=== PATIENT | female | born 1955 | race Caucasian/White ===

== ENCOUNTER 2020-09-30 19:57 | Inpatient (IN) | payer MEDICARE, OTHER ==
[~2020-09-30] VITALS: Ht 172.7 cm; Wt 85.1 kg
[2020-09-30] MEDS ORDERED: DEXAMETHASONE SOD PHOS 10 MG/ML VIAL. IV ONE (21:15)
--- NOTE | 2020-09-30 21:33 | PHYS DOC ---
Past History Past Medical History: Hypothyroid, Pneumonia Additional Past Medical Histor: anal cancel, diverticulitis (RICARDO MESA APRN) Past Surgical History: Other Additional Past Surgical Histo: colostomy (RICARDO MESA APRN) Alcohol Use: None (RICARDO MESA APRN) General Adult EDM: Chief Complaint: SHORTNESS OF BREATH HPI: HPI: Patient is a 65-year-old female presents with nonproductive cough and shortness of breath . Patient states that her cough started a week ago and has gradually worsened. Patient reports shortness of breath started yesterday. Patient states "when I had pneumonia before this is exactly how I felt". Patient denies fevers. Patient is a 1 pack-a-day smoker of COPD, colorectal cancer. (RICARDO MESA APRN) Review of Systems: Review of Systems: Constitutional: Denies fever or chills Eyes: Denies change in visual acuity HENT: Denies nasal congestion or sore throat Respiratory: Reports nonproductive cough and shortness of breath Cardiovascular: Denies chest pain or edema GI: Denies abdominal pain, nausea, vomiting, bloody stools or diarrhea : Denies dysuria Musculoskeletal: Denies back pain or joint pain Integument: Denies rash Neurologic: Denies headache, focal weakness or sensory changes Endocrine: Denies polyuria or polydipsia Lymphatic: Denies swollen glands Psychiatric: Denies depression or anxiety (RICARDO MESA APRN) Current Medications: Current Meds: Current Medications Medications (Trade) Dose Ordered Sig/Damaso Start Time Stop Time Status Last Admin Dose Admin Dexamethasone Sodium Phosphate (Decadron) 10 mg 1X ONCE 09/30/20 21:15 09/30/20 21:17 DC (RICARDO MESA APRN) Allergies: Allergies: Allergies Coded Allergies Type Severity Reaction Last Updated Verified Penicillins Allergy Intermediate 09/30/20 Yes (RICARDO MESA APRN) Physical Exam: PE: Constitutional: Well developed, well nourished, no acute distress, non-toxic appearance. [] HENT: Normocephalic, atraumatic, bilateral external ears normal, oropharynx moist, no oral exudates, nose normal. [] Eyes: PERRLA, EOMI, conjunctiva normal, no discharge. [] Neck: Normal range of motion, no tenderness, supple, no stridor. [] Cardiovascular:Heart rate regular rhythm, no murmur [] Lungs & Thorax: Bilateral expiratory wheezes Abdomen: Bowel sounds normal, soft, no tenderness, no masses, no pulsatile masses. [] Skin: Warm, dry, no erythema, no rash. [] Back: No tenderness, no CVA tenderness. [] Extremities: No tenderness, no cyanosis, no clubbing, ROM intact, no edema. [] Neurologic: Alert and oriented X 3, normal motor function, normal sensory function, no focal deficits noted. [] (RICARDO MESA APRN) Current Patient Data: Vital Signs: Vital Signs Date Time Temp Pulse Resp B/P (MAP) Pulse Ox O2 Delivery O2 Flow Rate FiO2 09/30/20 21:01 98.1 89 20 223/119 (153) 93 Room Air (RICARDO MESA APRN) EKG: EKG: Sinus rhythm. 79 bpm. [] (RICARDO MESA APRN) Radiology/Procedures: Radiology/Procedures: [] EXAMINATION: XR CHEST 1V CLINICAL HISTORY: Shortness of breath EXAM DATE/TIME: 09/30/2020 9:19 PM COMPARISON: None FINDINGS: Lines, Tubes, and Devices: None. Cardiomediastinal Silhouette: Normal heart size. Aortic atherosclerotic calcification. Lungs and Pleura: Questionable mild patchy bibasilar airspace disease, likely atelectasis. No evidence of pleural effusion. Pulmonary vasculature unremarkable. Bones and Soft Tissues: No acute osseous abnormality. IMPRESSION: Questionable mild patchy bibasilar airspace disease, likely atelectasis, otherwise no evidence of acute cardiopulmonary abnormality. Electronically signed by: Jimi Hays DO (09/30/2020 9:39 PM) [facility] (RICARDO MESA APRN) Heart Score: C/O Chest Pain: No Risk Factors: Risk Factors: DM, Current or recent (<one month) smoker, HTN, HLP, family history of CAD, obesity. Risk Scores: Score 0 - 3: 2.5% MACE over next 6 weeks - Discharge Home Score 4 - 6: 20.3% MACE over next 6 weeks - Admit for Clinical Observation Score 7 - 10: 72.7% MACE over next 6 weeks - Early Invasive Strategies (RICARDO MESA APRN) Course & Med Decision Making: Course & Med Decision Making Pertinent Labs and Imaging studies reviewed. (See chart for details) [] 65-year-old female presents with nonproductive cough and shortness of breath for 1 week. Patient has expiratory wheezes. 10 of dexamethasone and DuoNeb given. Troponin is 0.078. No ST elevation on EKG. CTA ordered. Chest x-ray showed possible right-sided pneumonia. doxycycline ordered to treat pneumonia. 324 of aspirin given. Transfer patient care to Dr. Krishnan (RICARDO MESA APRN) Course & Med Decision Making Patient is a 65-year-old female whose care was transferred to pa at [facility] pending CT and labs. Vital signs notable for hypertension and tachycardia. EKG sinus rhythm and no STEMI but elevated troponin. D-dimer normal. CT a with no pulmonary embolism and a couple small lung nodules. Other laboratory analysis not concerning. Findings suggestive of pneumonia and patient was started on antibiotics and given steroids. Discussed findings with both and the planting machine operator at [place] who felt patient would benefit from admission to [place] for continued evaluation and treatment of her elevated troponin and pneumonia. Patient grateful, verbalized understanding and agreed with plan of admission. (GRAHAM KRISHNAN MD) Dragon Disclaimer: Dragon Disclaimer: This electronic medical record was generated, in whole or in part, using a voice recognition dictation system. (RICARDO MESA APRN) Departure Departure: Impression: Primary Impression: CAP (community acquired pneumonia) Qualified Codes: J18.9 - Pneumonia, unspecified organism Additional Impression: COPD (chronic obstructive pulmonary disease) Qualified Codes: J44.1 - Chronic obstructive pulmonary disease with (acute) exacerbation Disposition: ADMITTED INPATIENT Admitting Physician: Shahab Peres (RICARDO MEAS APRN) Condition: STABLE Referrals: BRIE HANSON MD (PCP) RICARDO MESA APRN September 30, 2020 21:33 GRAHAM KRISHNAN MD September 30, 2020 23:45
[2020-09-30 21:42] LABS: BASO % 0 % (0-3); EOS # 0.3 x10^3/uL (0.0-0.7); EOS % 4 % (0-3); HEMOGLOBIN 13.8 g/dL (12.0-15.5); LYMPH # 1.9 x10^3/uL (1.0-4.8); LYMPH % 24 % (24-48); MEAN CORPUSCULAR HEMOGLOBIN 28 pg (25-35); MEAN CORPUSCULAR HGB CONC 33 g/dL (31-37); MEAN CORPUSCULAR VOLUME 86 fL (79-100); MONO # 0.6 x10^3/uL (0.0-1.1); MONO % 7 % (0-9); NEUT # 5.2 x10^3uL (1.8-7.7); NEUT % 65 % (31-73); PLATELET COUNT 267 x10^3/uL (140-400); RED CELL DISTRIBUTION WIDTH 16.4 % (11.5-14.5)
--- NOTE | 2020-09-30 21:42 | RAD ---
EXAMINATION: XR CHEST 1V CLINICAL HISTORY: Shortness of breath EXAM DATE/TIME: 09/30/2020 9:19 PM COMPARISON: None FINDINGS: Lines, Tubes, and Devices: None. Cardiomediastinal Silhouette: Normal heart size. Aortic atherosclerotic calcification. Lungs and Pleura: Questionable mild patchy bibasilar airspace disease, likely atelectasis. No evidenc e of pleural effusion. Pulmonary vasculature unremarkable. Bones and Soft Tissues: No acute osseous abnormality. IMPRESSION: Questionable mild patchy bibasilar airspace disease, likely atelectasis, otherwise no evidence of acu te cardiopulmonary abnormality. Electronically signed by: Jimi Hays DO (09/30/2020 9:39 PM) KAYY
[2020-09-30] MEDS ORDERED: IPRATRPIUM/ALBUTEROL 0.5/2.5MG 3 ML NEBU. NEB ONE (21:45)
[2020-09-30 21:48] LABS: CALCIUM 8.6 mg/dL (8.5-10.1); CREATININE 1.2 mg/dL (0.6-1.0); GFR 45.1; POTASSIUM 4.4 mmol/L (3.5-5.1)
[2020-09-30 21:54] LABS: ALBUMIN 3.8 g/dL (3.4-5.0); TOTAL BILIRUBIN 0.3 mg/dL (0.2-1.0); TOTAL PROTEIN 7.5 g/dL (6.4-8.2)
[2020-09-30] MEDS ORDERED: DOXY-96 PO (21:54)
[2020-09-30] MEDS ORDERED: DOXYCYCLINE HYCLATE 100 MG TABLET PO ONE (22:00)
[2020-09-30] MEDS ORDERED: ASPIRIN CHEWABLE 81 MG TABLET. PO ONE (22:15)
[2020-09-30] MEDS ORDERED: DOXYCYCLINE HYCLATE 100 MG in IV DEXTROSE 5% 100 ML IV ONE (22:15)
[2020-09-30] MEDS ORDERED: IOHEXOL 350 MG/ML 100 ML VIAL. IV ONE (22:30)
[2020-09-30] MEDS ORDERED: IV DEXTROSE 5% 100 ML IV ONE (22:42)
[2020-09-30] MEDS ORDERED: DOXYCYCLINE HYCLATE 100 MG VIAL IV ONE (22:42)
--- NOTE | 2020-09-30 23:21 | RAD ---
INDICATION: Reason: SOB, OMNI 350, 75ml / Spl. Instructions: / History: COMPARISON: None. TECHNIQUE: Axial CT images obtained through the chest. Intravenous contrast utilized. Angiogram 3D images proce ssed per protocol. One or more of the following individualized dose reduction techniques were utilized for this examinat ion: 1. Automated exposure control; 2. Adjustment of the mA and/or kV according to patient size; 3 . Use of iterative reconstruction technique. FINDINGS: Sub-4 mm left upper lung nodule. Sub-4 mm right upper lung nodule. No focal airspace consolidation. Partially visualized liver is low density. Can be seen with fatty infiltration. Gallstones. Low-density left adrenal nodule could be from adenoma. Coronary artery calcific atherosclerosis. Small amount contrast is seen within the thoracic aorta which limits evaluation but no aneurysm is se en. Degenerative changes of spine. Mild wedging of the vertebral body. No central pulmonary embolus IMPRESSION: No central pulmonary embolus. There are couple of small lung nodules. Gallstones. Fleischner Society recommendations for solitary solid lung nodule follow up.: In a low risk patient: <6mm - No follow up required. 6-8mm - 6-[address], then CT at 18-24 months. >8mm - CT at 3 months, PET/CT or tissue sampling. In a high risk patient (history of smoking or other known risk factors): <6mm - Follow up CT at 12 months. 6-8mm - 6-[address], then CT at 18-24 months. >8mm - CT at 3 months, PET/CT or tissue sampling. Fleischner Society recommendations for multiple solid lung nodule follow up.: In a low risk patient: <6mm - No follow up required. 6-8mm - 3-[address], then CT at 18-24 months. >8mm - CT at 3-6 months, then at 18-24 months. PET/CT or tissue sampling based on most suspicious no dule. In a high risk patient (history of smoking or other known risk factors): <6mm - Follow up CT at 12 months. 6-8mm - 3-[address], then CT at 18-24 months. >8mm - CT at 3-6 months, PET/CT or tissue sampling option based on most suspicious nodule. Electronically signed by: Hero Steiner MD (09/30/2020 11:19 PM) [id number]
[2020-10-01] VITALS (20 sets, daily range): BP systolic 134–224; BP diastolic 54–98
[2020-10-01 00:08] LABS: BILIRUBIN,URINE NEG (NEG); CLARITY,URINE CLEAR; COLOR,URINE STRAW; GLUCOSE,URINE NEG (NEG)
[2020-10-01 00:09] LABS: NITRITE,URINE NEG (NEG); UROBILINOGEN,URINE 0.2 mg/dL (0.2 mg/dL)
[2020-10-01 00:10] LABS: BACTERIA,URINE 0 /HPF (0-FEW); RBC,URINE 0 /HPF (0-2); SQUAMOUS EPITHELIAL CELL,UR FEW /LPF; WBC,URINE 0 /HPF (0-4)
[2020-10-01] MEDS ORDERED: LABETALOL 20 MG/4 ML DISP.SYRIN. IVP ONE (01:00)
--- NOTE | 2020-10-01 02:19 | EKG ---
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
[2020-10-01] MEDS: LABETALOL 20 MG/4 ML DISP.SYRIN. IVP PRN ×2 (02:46→22:46)
[2020-10-01] MEDS ORDERED: LEVO112T4 PO (04:04)
[2020-10-01] MEDS: LEVOTHYROXINE 112 MCG TABLET PO SCH (07:55)
--- NOTE | 2020-10-01 08:30 | PDOC2 ---
CARDIAC CONSULT DATE OF CONSULT DOS: DATE: 10/01/20 TIME: 08:23 REASON FOR CONSULT Reason for Consult Elevated troponin REFERRING PHYSICIAN Referring Physician Dr. Peres SOURCE Source: Chart review, Patient HPI History of Present Illness This is 65 yo female who presented secondary to shortness of breath and cough. Troponin noted to be mildly elevated, which prompted this consult. Blood pressure noted to be significantly elevated upon arrival. Patient reports she does not routinely check her blood pressures. Daughter reports that it has been running very high recently. Is not on antihypertensive therapy. PCP is Dr. Ambrosio, but does not seem his routinely. She denies any chest pain, palpitations, dizziness, ALBRECHT, or nausea/vomiting. Has had cough and congestion for the last week, week and a half. Cough productive of clear sputum. Feels short of breath, especially with persistent coughing. Feels as if she can't catch her breath. Was concerned about PNA so she came into the ED for further evaluation and treatment. PAST MEDICAL HISTORY Cardiovascular: HTN Pulmonary: COPD Heme/Onc: Cancer (colon ) Endocrine: Hypothyroidism PAST SURGICAL HISTORY Past Surgical History: Colectomy FAMILY HISTORY Family History: Cancer, Diabetes SOCIAL HISTORY Smoke: 2 packs per day ALCOHOL: none Drugs: None Lives: with Family CURRENT MEDICATIONS Current Medications Current Medications Dexamethasone Sodium Phosphate (Decadron) 10 mg 1X ONCE IV Last administered on 09/30/20at 21:47; Start 09/30/20 at 21:15; Stop 09/30/20 at 21:17; Status DC Albuterol/ Ipratropium (Duoneb) 3 ml 1X ONCE NEB Last administered on 09/30/20at 21:36; Start 09/30/20 at 21:45; Stop 09/30/20 at 21:46; Status DC Doxycycline Hyclate (Vibra-Tab) 100 mg 1X ONCE PO ; Start 09/30/20 at 22:00; Stop 09/30/20 at 22:01; Status Cancel Aspirin (Aspirin Chewable) 324 mg 1X ONCE PO Last administered on 09/30/20at 22:54; Start 09/30/20 at 22:15; Stop 09/30/20 at 22:20; Status DC Doxycycline Hyclate 100 mg/ Dextrose 100 ml @ 50 mls/hr 1X ONCE IV Last administered on 09/30/20at 22:56; Start 09/30/20 at 22:15; Stop 10/01/20 at 00:14; Status DC Iohexol (Omnipaque 350 Mg/ml) 100 ml 1X ONCE IV Last administered on 09/30/20at 22:39; Start 09/30/20 at 22:30; Stop 09/30/20 at 22:31; Status DC Dextrose 100 ml @ As Directed STK-MED ONCE IV ; Start 09/30/20 at 22:42; Stop 09/30/20 at 22:42; Status DC Doxycycline Hyclate 100 mg STK-MED ONCE IV ; Start 09/30/20 at 22:42; Stop 09/30/20 at 22:42; Status DC Nicardipine HCl 50 mg/Sodium Chloride 270 ml @ 27 mls/hr CONT PRN IV SEE I/O RECORD; Start 10/01/20 at 00:15; Stop 10/01/20 at 00:31; Status DC Labetalol HCl (Normodyne) 20 mg 1X ONCE IVP Last administered on 10/01/20at 00:36; Start 10/01/20 at 01:00; Stop 10/01/20 at 01:01; Status DC Labetalol HCl (Normodyne) 20 mg 1X PRN PRN IVP HYPERTENSION Last administered on 10/01/20at 02:46; Start 10/01/20 at 01:30 Labetalol HCl (Trandate) 100 mg TID PO Last administered on 10/01/20at 07:55; Start 10/01/20 at 09:00 Levothyroxine Sodium (Synthroid) 112 mcg DAILY06 PO Last administered on 10/01/20at 07:55; Start 10/01/20 at 07:00 Active Scripts Active Reported Levothyroxine Sodium 112 Mcg Tablet 1 Tab PO DAILY ALLERGIES Allergies: Coded Allergies: Penicillins (Verified Allergy, Intermediate, 09/30/20) ROS Review of Systems 14 point ROS conducted with pertinent positives noted above in HPI PHYSICAL EXAM General: Alert, Oriented X3, Cooperative, No acute distress HEENT: Atraumatic Lungs: Clear to auscultation Heart: Regular rate Abdomen: Soft, No tenderness Extremities: No edema, Normal pulses Skin: No breakdown Neuro: Normal speech, Sensation intact Psych/Mental Status: Mental status NL, Mood NL MUSCULOSKELETAL: Osteoarthritic changes both hands VITALS Vital Signs Vital Signs Date Time Temp Pulse Resp B/P (MAP) Pulse Ox O2 Delivery O2 Flow Rate FiO2 10/01/20 07:55 75 194/90 10/01/20 05:31 98.2 18 94 Nasal Cannula 2.0 LABS LABS Laboratory Tests Test 09/30/20 21:24 09/30/20 23:45 10/01/20 00:20 10/01/20 04:10 White Blood Count 8.0 x10^3/uL (4.0-11.0) Red Blood Count 4.90 x10^6/uL (3.50-5.40) Hemoglobin 13.8 g/dL (12.0-15.5) Hematocrit 42.0 % (36.0-47.0) Mean Corpuscular Volume 86 fL (79-100) Mean Corpuscular Hemoglobin 28 pg (25-35) Mean Corpuscular Hemoglobin Concent 33 g/dL (31-37) Red Cell Distribution Width 16.4 % (11.5-14.5) Platelet Count 267 x10^3/uL (140-400) Neutrophils (%) (Auto) 65 % (31-73) Lymphocytes (%) (Auto) 24 % (24-48) Monocytes (%) (Auto) 7 % (0-9) Eosinophils (%) (Auto) 4 % (0-3) Basophils (%) (Auto) 0 % (0-3) Neutrophils # (Auto) 5.2 x10^3uL (1.8-7.7) Lymphocytes # (Auto) 1.9 x10^3/uL (1.0-4.8) Monocytes # (Auto) 0.6 x10^3/uL (0.0-1.1) Eosinophils # (Auto) 0.3 x10^3/uL (0.0-0.7) Basophils # (Auto) 0.0 x10^3/uL (0.0-0.2) Prothrombin Time 9.8 SEC (9.4-11.4) Prothromb Time International Ratio 0.9 (0.9-1.1) Activated Partial Thromboplast Time 24 SEC (23-33) D-Dimer (Chely) 0.43 mg/L (0.00-0.50) Sodium Level 141 mmol/L (136-145) Potassium Level 4.4 mmol/L (3.5-5.1) Chloride Level 104 mmol/L (98-107) Carbon Dioxide Level 28 mmol/L (21-32) Anion Gap 9 (6-14) Blood Urea Nitrogen 14 mg/dL (7-20) Creatinine 1.2 mg/dL (0.6-1.0) Estimated GFR (Cockcroft-Gault) 45.1 BUN/Creatinine Ratio 12 (6-20) Glucose Level 111 mg/dL (70-99) Lactic Acid Level 0.9 mmol/L (0.4-2.0) Calcium Level 8.6 mg/dL (8.5-10.1) Total Bilirubin 0.3 mg/dL (0.2-1.0) Aspartate Amino Transf (AST/SGOT) 29 U/L (15-37) Alanine Aminotransferase (ALT/SGPT) 23 U/L (14-59) Alkaline Phosphatase 71 U/L (46-116) Troponin I Quantitative 0.078 ng/mL (0-0.055) 0.083 ng/mL (0-0.055) 0.076 ng/mL (0-0.055) BC-Prv-O-Type Natriuretic Peptide 183 pg/mL (0-124) Total Protein 7.5 g/dL (6.4-8.2) Albumin 3.8 g/dL (3.4-5.0) Albumin/Globulin Ratio 1.0 (1.0-1.7) Urine Collection Type Unknown Urine Color Straw Urine Clarity Clear Urine pH 7.0 Urine Specific [place] 1.010 Urine Protein Neg (NEG-TRACE) Urine Glucose (UA) Neg mg/dL (NEG) Urine Ketones (Stick) Neg mg/dL (NEG) Urine Blood Trace (NEG) Urine Nitrite Neg (NEG) Urine Bilirubin Neg (NEG) Urine Urobilinogen Dipstick 0.2 mg/dL (0.2 mg/dL) Urine Leukocyte Esterase Neg (NEG) Urine RBC 0 /HPF (0-2) Urine WBC 0 /HPF (0-4) Urine Squamous Epithelial Cells Few /LPF Urine Bacteria 0 /HPF (0-FEW) ASSESSMENT/PLAN Assessment/Plan 1. Acute respiratory failure secondary to AECOPD, bronchitis/URI 2. Hypertensive urgency; remains labile 3. Mild troponin elevation; peak 0.08. Most probable type II , demand ischemia 4. H/o colorectal CA 5. Hypothyroidism; on replacement 6. Suspected CKD secondary to uncontrolled HTN 6. Tobaccoism; discussed/encouraged cessation Recommendations Continue labetalol Add lisinopril for BP control Hydralazine IV PRN Monitor trends and titrate therapy as warrants If blood pressure remains uncontrolled, consider renal artery duplex to r/o DAMARIS Add ASA Lipids, TSH Echo to assess LV systolic function (this can be conducted on an outpatient basis if unable to obtain prior to discharge) Plan outpatient ischemic evaluation BALWINDER HAMPTON APRN October 01, 2020 08:30
[2020-10-01] MEDS ORDERED: LISINOPRIL 20 MG TABLET PO SCH (09:00)
[2020-10-01] MEDS ORDERED: hydrALAZINE 20 MG/ML VIAL. IV PRN (09:00)
[2020-10-01] MEDS ORDERED: LABETALOL HCL 100 MG TABLET PO SCH ×2 (09:00→21:00)
[2020-10-01] MEDS: ASPIRIN ENTERIC COATED 81 MG TABLET.DR. PO SCH (09:40)
[2020-10-01] MEDS ORDERED: diphenhydrAMINE 50 MG/ML VIAL IVP ONE (12:45)
[2020-10-01] MEDS ORDERED: DEXAMETHASONE SOD PHOS 4 MG/ML VIAL. IVP ONE (17:00)
--- NOTE | 2020-10-01 17:37 | HP ---
HISTORY OF PRESENT ILLNESS: The patient is a 65-year-old female patient who came to the emergency room complaining of shortness of breath and cough. Apparently, she was evaluated in the emergency room, was found to have elevated blood pressure and further evaluation showed that her troponin was slightly elevated and was admitted to control her blood pressure and to do 2 more sets of cardiac enzyme and to consult the med asst. She herself denied any chest pain. Her complaint was basically shortness of breath and cough that is mostly dry that has been going on for the last week. She stated that she attributes that to allergies. PAST MEDICAL HISTORY: Significant for hypothyroidism and she had had rectal anal cancer treated with chemo and radiation, had had also an episode of diverticulitis. PAST SURGICAL HISTORY: Significant for multiple colonoscopies as well as diverting colostomy. ALLERGIES: SHE IS ALLERGIC TO PENICILLIN. MEDICATIONS: She is only on levothyroxine at 112 mcg once a day. She is not taking any other medication or even [id number] medication. FAMILY HISTORY: She has 1 sister still alive and has diabetes, hypertension, thyroid disease, and anxiety. Her father in his 80s due to bone cancer. Mother at age of 56 because of colon cancer. SOCIAL HISTORY: She is . She lives with her daughter. She smokes a pack a day for more than 40 years. She does not drink alcohol or recreational drugs. 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 REVIEW OF SYSTEMS: The patient has cataract that has not required surgery yet. She denied any glaucoma or macular degeneration. Denied any headache, tinnitus, or sensorineural deafness. Denied nosebleed, stuffy nose, or postnasal drip. Denies any sore throat, sore tongue, toothache, hoarseness of voice, or difficulty swallowing. Denied any nausea, vomiting, diarrhea, or constipation. Denied any hematemesis, melena, or hematochezia. Denied any dysuria, frequency, hematuria. Denied any chest pain. Did complain of shortness of breath, but denied any orthopnea or paroxysmal nocturnal dyspnea. She did have cough, which is mostly dry. Denied any dizziness, lightheadedness, or vertigo. Denied any chills, rigors, or fever. PHYSICAL EXAMINATION: VITAL SIGNS: On arrival to the emergency room, the patient's blood pressure was 223/119, temperature was 98.1, respiratory rate 20, and oxygen saturation was 93%. HEENT: Examination of the head, eyes, ears, nose, and throat: Normocephalic, atraumatic. NECK: Supple. HEART: Showed normal first and second heart sounds. No gallop, rub, or murmur. CHEST: Clear to auscultation, no crepitation or rhonchi. ABDOMEN: Distended, soft, nontender. NEUROLOGIC: She was apparently awake, alert, responding appropriately. All cranial nerves intact. She moves extremities without difficulty. She normally ambulates without assistance or assistive devices. LABORATORY DATA: On arrival to the emergency room, her white cell count was 8000, hemoglobin 14, hematocrit 42, MCV 86, and platelet count of 267,000 with normal manual differential. Her serum sodium was 141, potassium 4.4, chloride 104, bicarbonate 28, anion gap of 9, BUN 14, creatinine 1.2. Estimated GFR was 45 mL per minute. Her glucose was 111, calcium was 8.6. Total bilirubin, AST, ALT, alkaline phosphatase were normal. Total protein 7.5, albumin was 3.8. Her prothrombin time was 9.8, INR of 0.9, APTT was 24, and D-dimer was 0.43. Her urinalysis is essentially unremarkable and she apparently has had a chest x-ray, showed the cardiomediastinal silhouette, normal heart size, aortic atherosclerotic calcification. Lungs and pleura, a questionable mild patchy bibasilar airspace disease, likely atelectasis. No evidence of pleural effusion. Pulmonary vasculature is unremarkable. There is no acute osseous abnormality. The patient has a CT angio of the chest, which basically showed that the patient has 4 mm left upper lung nodule and no focal airspace consolidation, partially visualized liver is low density, can be seen with fatty infiltration, gallstones, low density left adrenal nodule could be from adenoma, coronary artery calcific atherosclerosis. Small amount of contrast seen within the thoracic aorta, which limits evaluation, but no aneurysm is seen. Degenerative changes of the spine, mild wedging of the vertebral body. No central pulmonary embolus. ASSESSMENT AND PLAN: The patient was basically admitted with hypertensive urgency, questionable community-acquired pneumonia, although CT scan was not revealing chronic obstructive pulmonary disease. The patient was treated with doxycycline and was given dexamethasone as well as albuterol and Atrovent. Her blood pressure was extremely high and therefore, she was treated initially with IV labetalol and hydralazine. At one point in time, a decision was made to start her on nicardipine drip, but we will treat her with labetalol. Unfortunately, her blood pressure continued to be high, so lisinopril and hydralazine were added. NESSA DR: Alicia TID: [id number]
[2020-10-01] MEDS ORDERED: diphenhydrAMINE 50 MG/ML VIAL IVP PRN (18:00)
[2020-10-01] MEDS: IPRATRPIUM/ALBUTEROL 0.5/2.5MG 3 ML NEBU. NEB SCH (20:24)
[2020-10-01] MEDS: DOXYCYCLINE HYCLATE 100 MG TABLET PO SCH (20:38)
[2020-10-02] VITALS (9 sets, daily range): BP systolic 117–201; BP diastolic 19–79
--- NOTE | 2020-10-02 02:26 | PN ---
DATE: 10/01/2020 SUBJECTIVE: The patient is sitting at the edge of the bed comfortably, eating her dinner in no apparent distress. Apparently had hydralazine and lisinopril added to her regimen to labetalol and she developed an allergic reaction and therefore, decision was made to discontinue them altogether. I actually decided to discontinue all these 3 antihypertensive medication and start tomorrow on amlodipine 10 mg as she is wheezing when I saw her this afternoon. PHYSICAL EXAMINATION: GENERAL: When I examined her, she looked well and was clearly in no apparent respiratory distress. No pallor, jaundice, or cyanosis from thyromegaly. No jugular distention. No limb edema. VITAL SIGNS: Heart rate was 85, blood pressure is 139/63, temperature was 98.3, respiratory rate was 17 and oxygen saturation was 93% on room air. HEAD, EYES, EARS, NOSE AND THROAT: Normocephalic, atraumatic. NECK: Supple. HEART: Showed normal first and second heart sounds, no gallop, murmur. CHEST: Shows central trachea, equal bilateral expansion, air entry, vesicular breath sounds with diffuse bilateral rhonchi. I could not appreciate any crepitation. ABDOMEN: Distended, soft, nontender. NEUROLOGIC: She was grossly intact. LABORATORY DATA: She has no lab work done this morning. ASSESSMENT: 1. Acute bronchitis. I do not see any evidence of pneumonia, especially CT scan showed no evidence of any infiltrate. 2. Chronic obstructive pulmonary disease exacerbation. 3. Hypertensive urgency. 4. Nicotine dependence. PLAN: To discontinue the lisinopril, hydralazine and labetalol. We will start tomorrow with amlodipine and tapering course of steroids and if she remains stable, we will do a 6-minute walk tomorrow to see if she qualifies for oxygen. I have emphasized to her the need to quit smoking. DAMON/JO PATE: Alicia TID: [id number]
[2020-10-02] MEDS: LEVOTHYROXINE 112 MCG TABLET PO SCH (05:29)
[2020-10-02] MEDS: IPRATRPIUM/ALBUTEROL 0.5/2.5MG 3 ML NEBU. NEB SCH ×4 (05:33→21:18)
[2020-10-02 05:59] LABS: HEMATOCRIT 41.3 % (36.0-47.0); HEMOGLOBIN 13.5 g/dL (12.0-15.5); RED BLOOD COUNT 4.82 x10^6/uL (3.50-5.40); RED CELL DISTRIBUTION WIDTH 16.7 % (11.5-14.5); WHITE BLOOD COUNT 8.4 x10^3/uL (4.0-11.0)
[2020-10-02 06:07] LABS: CALCIUM 8.4 mg/dL (8.5-10.1); CREATININE 1.1 mg/dL (0.6-1.0); GFR 49.8; POTASSIUM 3.9 mmol/L (3.5-5.1)
[2020-10-02] MEDS: DOXYCYCLINE HYCLATE 100 MG TABLET PO SCH ×2 (08:10→20:24)
[2020-10-02] MEDS: ASPIRIN ENTERIC COATED 81 MG TABLET.DR. PO SCH (08:10)
[2020-10-02] MEDS: DEXAMETHASONE 4 MG TABLET PO SCH (08:10)
[2020-10-02] MEDS ORDERED: amLODIPine BESYLATE 10 MG TABLET PO SCH (09:00)
[2020-10-02 10:58] LABS: THYROID STIM HORMONE (TSH) 103.64 uIU/mL (0.358-3.740)
[2020-10-02] MEDS ORDERED: LOSARTAN 50 MG TABLET. PO SCH (15:00)
--- NOTE | 2020-10-02 15:43 | PDOC ---
PROGRESS NOTES Date of Service DOS: DATE: 10/02/20 TIME: 15:43 Diagnosis Problem Problems Medical Problems: (1) CAP (community acquired pneumonia) Status: Acute (2) COPD (chronic obstructive pulmonary disease) Status: Acute (3) Hypertensive emergency Status: Acute Assessment 1. Acute respiratory failure secondary to AECOPD, bronchitis/URI, significantly improved since admission. Continue treatment per IM 2. Hypertensive urgency; labile but better controlled. Continue current medical regimen 3. Mild troponin elevation; Most probable type II , demand ischemia. Patient chest pain free. Plan echo and MPI as outpatient 4. H/o colorectal CA 5. Hypothyroidism; on replacement 6. Suspected CKD secondary to uncontrolled HTN 6. Tobaccoism; discussed/encouraged cessation Subjective Dyspnea improved, denied any chest pain Objective Vital Signs Date Time Temp Pulse Resp B/P (MAP) Pulse Ox O2 Delivery O2 Flow Rate FiO2 10/02/20 15:00 83 192/75 10/02/20 13:23 22 90 Room Air 10/02/20 11:26 2.0 10/02/20 10:03 97.4 Intake and Output 10/02/20 07:00 Intake Total 25 ml Balance 25 ml Intake Oral 25 ml # Voids 2 Abdomen: Soft Heart: Regular rate, No murmurs General: Alert, No acute distress Lungs: Clear to auscultation Neck: Supple Neuro: Normal speech Psych/Mental Status: Mood NL Review of Relevant I have reviewed the following items mary (where applicable) has been applied. Labs Laboratory Tests Test 10/02/20 05:46 White Blood Count 8.4 x10^3/uL (4.0-11.0) Red Blood Count 4.82 x10^6/uL (3.50-5.40) Hemoglobin 13.5 g/dL (12.0-15.5) Hematocrit 41.3 % (36.0-47.0) Mean Corpuscular Volume 86 fL (79-100) Mean Corpuscular Hemoglobin 28 pg (25-35) Mean Corpuscular Hemoglobin Concent 33 g/dL (31-37) Red Cell Distribution Width 16.7 % (11.5-14.5) H Platelet Count 276 x10^3/uL (140-400) Sodium Level 144 mmol/L (136-145) Potassium Level 3.9 mmol/L (3.5-5.1) Chloride Level 106 mmol/L (98-107) Carbon Dioxide Level 28 mmol/L (21-32) Anion Gap 10 (6-14) Blood Urea Nitrogen 19 mg/dL (7-20) Creatinine 1.1 mg/dL (0.6-1.0) H Estimated GFR (Cockcroft-Gault) 49.8 Glucose Level 143 mg/dL (70-99) H Calcium Level 8.4 mg/dL (8.5-10.1) L Microbiology 09/30/20 Blood Culture - Preliminary, Resulted NO GROWTH AFTER 1 DAY... Medications Current Medications Medications (Trade) Dose Ordered Sig/Damaso Route PRN Reason Start Time Stop Time Status Last Admin Dose Admin Doxycycline Hyclate (Vibra-Tab) 100 mg BID PO 10/01/20 21:00 10/02/20 08:10 Albuterol/ Ipratropium (Duoneb) 3 ml RTQID NEB 10/01/20 20:00 10/02/20 11:25 Dexamethasone Sodium Phosphate (Decadron) 4 mg 1X ONCE IVP 10/01/20 17:00 10/01/20 17:16 DC 10/01/20 17:24 Amlodipine Besylate (Norvasc) 10 mg DAILY PO 10/02/20 09:00 10/02/20 08:11 Dexamethasone (Decadron) 4 mg DAILYWBKFT PO 10/02/20 08:00 10/02/20 08:10 Losartan Potassium (Cozaar) 50 mg DAILY PO 10/02/20 15:00 10/02/20 15:00 Vitals/I & O Vital Signs Date Time Temp Pulse Resp B/P (MAP) Pulse Ox O2 Delivery O2 Flow Rate FiO2 10/02/20 15:00 83 192/75 10/02/20 13:23 22 90 Room Air 10/02/20 11:26 2.0 10/02/20 10:03 97.4 I & O 10/01/20 10/01/20 10/02/20 15:00 23:00 07:00 Intake Total 25 ml Balance 25 ml Justification of Admission: Justification of Admission: Justification of Admission Dx: Yes TERENCE BOOGIE MD October 02, 2020 15:43
[2020-10-02] MEDS ORDERED: LOSARTAN 50 MG TABLET. PO ONE (20:15)
--- NOTE | 2020-10-03 00:03 | PN ---
SUBJECTIVE: The patient continued to complain shortness of breath, chest tightness. Her blood pressure continued to be extremely high. Unfortunately, she had some form of allergic reaction yesterday when she was given a combination of labetalol, hydralazine and lisinopril, so I did start her on amlodipine this morning. Unfortunately, her blood pressure continued to be high. PHYSICAL EXAMINATION: GENERAL: When I examined her this afternoon, she looked well and was clearly in no apparent respiratory distress. SKIN: No pallor, jaundice, cyanosis, or thyromegaly. NECK: Supple. No jugular venous distention. EXTREMITIES: No lower limb edema. VITAL SIGNS: Heart rate was 83, blood pressure was 213/98, temperature was 97.4, respiratory rate 22, and oxygen saturation was 89% on room air. HEAD, EYES, EARS, NOSE AND THROAT: Normocephalic, atraumatic. HEART: Showed normal first and second heart sounds. No gallop or murmur. CHEST: Central trachea, equal bilateral expansion, air entry, diffuse bilateral rhonchi. I could not really appreciate any crepitation. ABDOMEN: Distended, soft, nontender. NEUROLOGIC: She was awake, alert, responding appropriately. All her cranial nerves intact. She moves extremities without difficulty. She ambulates without assistance or assistive devices. LABORATORY DATA: This morning showed a white cell count of 8400, hemoglobin 13.5, hematocrit 41, MCV 86 and platelet count 276,000. Serum sodium 144, potassium 3.9, chloride 106, bicarbonate 28, anion gap of 10, BUN 19, creatinine 1.1. Estimated GFR was 49 mL per minute. Her glucose 143, calcium was 8.4. Her serum triglycerides were high at 209, total cholesterol 272, LDL was 193, VLDL was 41, HDL was 38 and the ratio was 7. Her TSH was high at 103. ASSESSMENT: 1. Acute bronchitis. 2. Chronic obstructive pulmonary disease exacerbation. 3. Hypertensive urgency. 4. Hyperlipidemia. 5. Hypothyroidism. PLAN: My plan is to continue with steroids and bronchodilators and doxycycline for acute bronchitis and COPD exacerbation. I will change her amlodipine to Procardia and increase her levothyroxine to 200 mcg as she apparently was on 150 mcg. I am not really sure that she is really taking it, but I will increase to 200 mcg today. Check her T3, free T4 tomorrow as a baseline and obviously she has to follow up with her primary care physician to adjust her Synthroid and her antihypertensive medication once she is home. We did also a 6-minute walk and she obviously dropped her oxygen saturation to 86% on exertion on room air and she was qualified for home oxygen. VJ DR: Alicia TID: [id number]
[2020-10-03 02:14] LABS: THYROXINE 3.4 ug/dL (4.5-12.0)
[2020-10-03] MEDS: IPRATRPIUM/ALBUTEROL 0.5/2.5MG 3 ML NEBU. NEB SCH ×4 (05:14→20:15)
[2020-10-03] MEDS: LEVOTHYROXINE 100 MCG TABLET PO SCH (06:00)
[2020-10-03 06:19] VITALS: BP 135/57
[2020-10-03 07:10] LABS: CALCIUM 8.7 mg/dL (8.5-10.1); GFR 55.6; POTASSIUM 3.8 mmol/L (3.5-5.1)
[2020-10-03] MEDS: DEXAMETHASONE 4 MG TABLET PO SCH (09:05)
[2020-10-03] MEDS: DOXYCYCLINE HYCLATE 100 MG TABLET PO SCH ×2 (09:05→20:52)
[2020-10-03] MEDS: ASPIRIN ENTERIC COATED 81 MG TABLET.DR. PO SCH (09:05)
[2020-10-03 10:54] VITALS: BP 148/72
[2020-10-03] MEDS: LOSARTAN 50 MG TABLET. PO SCH (12:30)
[2020-10-03] MEDS ORDERED: DOCUSATE SODIUM 100 MG CAPSULE PO PRN (12:45)
--- NOTE | 2020-10-03 12:47 | RAD ---
EXAM: US RENAL DUPLEX 10/03/2020 8:23 AM INDICATION: Hypertensive urgency. COMPARISON: None TECHNIQUE: Grayscale, color and spectral Doppler ultrasound images of the kidneys. FINDINGS: The kidneys are normal in size and echogenicity. Normal cortical thickness. No hydronephrosis or mass visualized. The right kidney measures 10.1 x 4.5 x 4.1 cm. Right renal artery peak systolic velocity (cm/s) and r esistive indices are 68 and 0.7, 108 and 0.8, and 98 and 0.7 at the proximal, middle, and distal righ t renal artery. Right renal artery/aorta ratio: 1.9 The left kidney measures 11.6 x 4.1 x 4.6 cm. Peak systolic velocity (cm/s) and resistive indices are 145 and 0.8, 82 and 0.8, and 168 and 0.9 at the proximal, middle, and distal left renal artery. Left renal artery/aorta ratio: 2.8 Peak systolic velocity of the aorta is 57 cm/s. Inferior vena cava is patent. Incidentally noted chol elithiasis and hepatic steatosis. IMPRESSION: 1. No evidence of renal artery stenosis. 2. Incidentally noted cholelithiasis and hepatic steatosis. Electronically signed by: Camila Perkins MD (10/03/2020 12:45 PM) [id number]
[2020-10-03 15:20] VITALS: BP 143/84
[2020-10-03 20:49] VITALS: BP 131/73
--- NOTE | 2020-10-03 21:09 | PN ---
DATE: 10/03/2020 SUBJECTIVE: The patient is resting, slightly propped up in bed, in no apparent respiratory distress. She is awake, alert and questioning her, denied any complaint. The nursing staff did not voice any concern and stated that she had an uneventful night. Her blood pressure is definitely much better controlled now that she is on Procardia and losartan, she continued to have some chest tightness and wheezing. Her TSH was extremely high and T3, T4, free T4 are very low, consistent with hypothyroidism. PHYSICAL EXAMINATION: GENERAL: When I examined her, she looked well and was clearly in no apparent respiratory distress. No pallor, jaundice, cyanosis, or thyromegaly. No jugular distention. No edema. VITAL SIGNS: Heart rate was 79, blood pressure 148/72, temperature was 98.4, respiratory rate was 20 and oxygen saturation was 95% on 2 liters of oxygen. HEAD, EYES, EARS, NOSE AND THROAT: Normocephalic, atraumatic. NECK: Supple. HEART: Normal first and second heart sounds, no gallop, rub or murmur. CHEST: Clear to auscultation, no crepitation or rhonchi. ABDOMEN: Distended, soft. The chest shows central trachea, equal bilateral expansion, air entry, vesicular breath sounds with diffuse bilateral rhonchi could not appreciate any crepitation. ABDOMEN: Distended, soft, nontender, no guarding or rigidity. No organomegaly. All hernial orifice intact. Bowel sounds normal. NEUROLOGIC: She was grossly intact. LABORATORY DATA: This morning showed white cell count was 8400, hemoglobin 14, hematocrit 41, MCV 86 and platelet count 276,000. Serum sodium 143, potassium 3.8, chloride 104, bicarbonate 27, anion gap of 12, BUN 17, creatinine 1, estimated GFR was 55 mL per minute. Her glucose 111, calcium was 8.7. Her free T4 was 0.43. Total T4 was 3.4 and total T3 was 41. ASSESSMENT: 1. Hypertensive encephalopathy. 2. Acute hypoxic respiratory failure. 3. Acute chronic obstructive pulmonary disease exacerbation. 4. Hypercholesterolemia. 5. Hypothyroidism. 6. Nicotine dependence. PLAN: To continue with bronchodilators and steroids. Continue with losartan and Procardia. Continue with levothyroxine. If she remains stable, she will be discharged home tomorrow. ELIAS/TIFFANY DR: Alicia TID: [id number]
[2020-10-03] MEDS ORDERED: POLYETHYLENE GLYCOL 3350 17 GM PACKET. PO PRN (22:30)
[2020-10-03] MEDS: DOCUSATE SODIUM 100 MG CAPSULE PO PRN (22:54)
[2020-10-03 23:58] VITALS: BP 158/76
[2020-10-04] MEDS: IPRATRPIUM/ALBUTEROL 0.5/2.5MG 3 ML NEBU. NEB SCH ×2 (05:05→09:11)
[2020-10-04] MEDS: LEVOTHYROXINE 100 MCG TABLET PO SCH (05:40)
[2020-10-04 05:41] VITALS: BP 169/79
[2020-10-04] MEDS: DOCUSATE SODIUM 100 MG CAPSULE PO PRN (08:48)
[2020-10-04] MEDS: DEXAMETHASONE 4 MG TABLET PO SCH (08:49)
[2020-10-04] MEDS: DOXYCYCLINE HYCLATE 100 MG TABLET PO SCH (08:49)
[2020-10-04] MEDS: ASPIRIN ENTERIC COATED 81 MG TABLET.DR. PO SCH (08:49)
[2020-10-04] MEDS: LOSARTAN 50 MG TABLET. PO SCH (08:49)
[2020-10-04] MEDS ORDERED: MAGNESIUM CITRATE 296 ML SOLUTION. PO ONE (09:00)
[2020-10-04 11:07] VITALS: BP 150/75
[2020-10-04] MEDS ORDERED: DOXY100C2 PO (13:53)
[2020-10-04] MEDS ORDERED: IPRA3AMP29 NEB (13:53)
[2020-10-04] MEDS ORDERED: LOSA100T14 PO (13:53)
[2020-10-04] MEDS ORDERED: NIFE90TA PO (13:53)
[2020-10-04] MEDS ORDERED: LACTOBACILLUS RHAMNOSUS GG 1 CAPSULE. PO SCH (21:00)
--- NOTE | 2020-10-04 22:51 | DS ---
DATE OF DISCHARGE: 10/04/2020 HOSPITAL COURSE: The patient is a 65-year-old female patient who was admitted with acute hypoxic respiratory failure, questionable community acquired pneumonia and hypertensive urgency. She was treated with oral doxycycline IV, dexamethasone as well as nebulized albuterol and Atrovent. We started her also on antihypertensive medications including labetalol, hydralazine and lisinopril. For some reason, the patient developed severe allergic reaction to one of them, so I discontinued all of them and started her on amlodipine, however, her blood pressure continued to be high and therefore, I switched her to Procardia as well as losartan. We checked her thyroid function test and revealed that she has ____ with TSH of more than 100. Her T3, T4 and free T4 are all very low consistent with hypothyroidism. The patient claimed that she has been taking her medication, although this is obviously not the case given the extremely low T3, T4, free T4 and extremely high TSH. Her blood pressure eventually was reasonably controlled. We did a 6-minute walk and she qualified for the oxygen and her chest tightness and bronchospasm has completely resolved and the decision was made to discharge her home to continue on treatment as an outpatient. PHYSICAL EXAMINATION: GENERAL: When I saw her today, she looked well and was clearly in no apparent respiratory distress. No pallor, jaundice, cyanosis. No lymphadenopathy, no thyromegaly. No jugular distention. No limb edema. VITAL SIGNS: Her heart rate was 83. Blood pressure was 150/75, temperature was 97.7, respiratory rate was 18 and oxygen saturation as 95% on 2 L of oxygen. HEAD, EYES, EARS, NOSE AND THROAT: Showed normocephalic, atraumatic. NECK: Supple. HEART: Normal first and second heart sounds. No gallop or murmur. CHEST: Clear to auscultation. No crepitation or rhonchi. ABDOMEN: Distended, soft, nontender. NEUROLOGIC: She was grossly intact. LABORATORY DATA: Her intake and output were ____ recorded. Her lab work this morning showed a white cell count of 8400, hemoglobin 13.5, hematocrit 41, MCV 86, and platelet count 276,000. Her serum sodium was 143, potassium 3.8, chloride 104, bicarbonate 27, anion gap of 12, BUN 17, creatinine 1. Estimated GFR was 55 mL per minute. Her glucose was 11, calcium was 8.7. Her TSH was high at 103.640. Her free T4 was low at 0.43, total T4 was low at 3.4, total T3 was low at 41. Her serum triglycerides was 209. Total cholesterol 272, LDL cholesterol was 193, VLDL was 41, HDL was 38 and the ratio was 7. Her prothrombin time, INR and APTT together with the D-dimer were all within normal range and urinalysis essentially unremarkable. Her Duplex renal artery showed no evidence of renal artery stenosis. DISCHARGE MEDICATIONS: The patient was discharged home to continue on losartan 100 mg once a day, Procardia 90 mg once a day, levothyroxine 150 mcg once a day , dexamethasone 4 mg once a day for 3 days, then 2 mg once a day for 3 days, doxycycline 100 mg twice a day for 5 more days, albuterol and Atrovent nebulizer 4 times a day. FINAL DISCHARGE DIAGNOSES: 1. Acute on chronic hypoxic respiratory failure. 2. Chronic obstructive pulmonary disease. 3. Acute bronchitis. 4. Hypertensive urgency. 5. Severe hypothyroidism. ELIAS/COLLIN/CHELA DR: Alicia TID: [id number]
== END 2020-10-04 15:41 | disposition home health service (06) | DRG 177 ==
LOC: ER 19:57 → 1 SOUTH 23:43 → ER 10-01 01:19 → ICU 10-01 07:38 → 1 SOUTH 10-01 17:44
PROVIDERS: ADMIT Internal Medicine; ATTEND Internal Medicine
DX: J15.6 Pneumonia due to other Gram-negative bacteria (principal); J96.21 Acute and chronic respiratory failure with hypoxia; J44.0 Chronic obstructive pulmonary disease with (acute) lower respiratory infection; I24.8 Other forms of acute ischemic heart disease; J44.1 Chronic obstructive pulmonary disease with (acute) exacerbation; J20.9 Acute bronchitis, unspecified; E03.9 Hypothyroidism, unspecified; J69.0 Pneumonitis due to inhalation of food and vomit; E78.00 Pure hypercholesterolemia, unspecified; E78.5 Hyperlipidemia, unspecified; F17.210 Nicotine dependence, cigarettes, uncomplicated; Z80.0 Family history of malignant neoplasm of digestive organs; Z82.49 Family history of ischemic heart disease and other diseases of the circulatory system; Z83.3 Family history of diabetes mellitus; Z85.048 Personal history of other malignant neoplasm of rectum, rectosigmoid junction, and anus; Z92.21 Personal history of antineoplastic chemotherapy; Z92.3 Personal history of irradiation; Z93.3 Colostomy status; Z79.899 Other long term (current) drug therapy; Z88.0 Allergy status to penicillin; Z88.8 Allergy status to other drugs, medicaments and biological substances; I12.9 Hypertensive chronic kidney disease with stage 1 through stage 4 chronic kidney disease, or unspecified chronic kidney disease; N18.9 Chronic kidney disease, unspecified; I16.0 Hypertensive urgency
CPT/HCPCS: 36415; 71045; 71275; 76770; 80048; 80053; 80061; 81001; 83605; 83880; 84436; 84439; 84443; 84480; 84484; 85025; 85027; 85379; 85610; 85730; 87040; 93005; 94618; 94640; 94760; 96365; 96375; J0360; J1100; J1200; J3490; J8540; Q9967; 99285-25